=== PATIENT | male | born 1970 ===

== ENCOUNTER 2021-01-14 18:03 | Emergency (ER) | payer OTHER ==
--- NOTE | 2021-01-14 18:23 | EDM.PDOC ---
<Yovany Salazar - Last Filed: 01/14/21 18:29> ED HPI GENERAL MEDICAL PROBLEM - General Chief Complaint: Back Pain or Injury Stated Complaint: HURT BACK AT WORK Time Seen by Provider: 01/14/21 18:23 Source of Information: Reports: Patient History Limitations: Reports: No Limitations - History of Present Illness INITIAL COMMENTS - FREE TEXT/NARRATIVE: Patient is a 50 year old male who presents to the emergency department for evaluation of low back pain. He reports that he developed low left sided back pain during a physical. Per protocol, he required evaluation in the ED. He rates his pain as 3/10 and notes that it feels as if there is a tight muscle. He denies radiation of symptoms into the legs, saddle anesthesia, weakness, changes to bowel or bladder function. No prior history of injury Onset: Today - Related Data Allergies Allergy/AdvReac Type Severity Reaction Status Date / Time No Known Allergies Allergy Verified 01/14/21 18:12 Home Meds: Home Meds Fenofibrate Nanocrystallized [Fenofibrate] 145 mg PO DAILY 03/26/16 [History] Pravastatin [Pravachol] 40 mg PO DAILY 01/14/21 [History] Past Medical History - Past Health History Medical/Surgical History: Denies Medical/Surgical History ED ROS GENERAL - Review of Systems Review Of Systems: See Below Constitutional: Reports: No Symptoms HEENT: Reports: No Symptoms Respiratory: Reports: No Symptoms Cardiovascular: Reports: No Symptoms Endocrine: Reports: No Symptoms GI/Abdominal: Reports: No Symptoms : Reports: No Symptoms Musculoskeletal: Reports: Back Pain Skin: Reports: No Symptoms Neurological: Reports: No Symptoms Psychiatric: Reports: No Symptoms Hematologic/Lymphatic: Reports: No Symptoms Immunologic: Reports: No Symptoms ED EXAM,LOWER BACK PAIN/INJURY - Physical Exam Exam: See Below Exam Limited By: No Limitations General Appearance: Alert, WD/WN, No Apparent Distress Eye Exam: Bilateral Eye: PERRL Ears: Normal External Exam, Normal Canal, Hearing Grossly Normal Nose: Normal Inspection Throat/Mouth: Normal Inspection Head: Atraumatic, Normocephalic Neck: Normal Inspection, Full Range of Motion Respiratory/Chest: No Respiratory Distress Cardiovascular: No Edema GI/Abdominal: No Distention (Male) Exam: Deferred Rectal (Males) Exam: Deferred Back Exam: Normal Inspection, Full Range of Motion, Muscle Spasm, Paraspinal Tenderness, Other (strength and sensation intact ). No: Vertebral Tenderness Extremities: Normal Inspection, Normal Range of Motion, Non-Tender Neurological: Alert, Normal Mood/Affect Psychiatric: Normal Affect Skin Exam: Warm, Dry Lymphatic: No Adenopathy Departure - Departure Time of Disposition: 18:28 Disposition: Home, Self-Care 01 Condition: Good Clinical Impression: Low back strain Qualifiers: Encounter type: initial encounter Qualified Code(s): S39.012A - Strain of muscle, fascia and tendon of lower back, initial encounter - Discharge Information *PRESCRIPTION DRUG MONITORING PROGRAM REVIEWED*: Not Applicable *COPY OF PRESCRIPTION DRUG MONITORING REPORT IN PATIENT MILY: Not Applicable Forms: ED Department Discharge Additional Instructions: Light activity as tolerated Avoid lifting over 25 pounds, Avoid strenuous PT, bending or twisting of the waist for the next 3 days Follow up with PCP if not improving as expected or should he require further work restrictions Can use ibuprofen as needed for pain. <Chirag Lopez - Last Filed: 01/14/21 18:31> ED HPI GENERAL MEDICAL PROBLEM Lower Back Pain Score (Numeric/FACES): 3 Course - Vital Signs Last Recorded V/S: Last Vital Signs Temp 97.1 F 01/14/21 18:13 Pulse 80 01/14/21 18:13 Resp 16 01/14/21 18:13 BP 134/83 01/14/21 18:13 Pulse Ox 100 01/14/21 18:13 - Re-Assessments/Exams Free Text/Narrative Re-Assessment/Exam: 01/14/21 18:31 I saw and evaluated the patient. Discussed with resident and agree with residents findings and plan as documented in the residents note. Sepsis Event Note (ED) - Focused Exam Vital Signs: Vital Signs Temp Pulse Resp BP Pulse Ox 01/14/21 18:13 97.1 F 80 16 134/83 100
== END 2021-01-14 18:33 | disposition home or self-care (01) ==
LOC: DL.ED 18:03
DX: S39.012A Strain of muscle, fascia and tendon of lower back, initial encounter (principal); W18.39XA Other fall on same level, initial encounter; Y93.43 Activity, gymnastics
CPT/HCPCS: 99283